=== PATIENT | female | born 1935 | race Caucasian/White ===

== ENCOUNTER 2020-11-27 06:57 | Inpatient (IN) | payer OTHER, MEDICARE ==
[~2020-11-27] VITALS: Ht 167.6 cm; Wt 61.5 kg
[~2020-11-27 06:57] MED LIST: ABAC300; CLINDAMYCIN PO; CLOP75 PO; COUMADIN; DABI150C PO; HYDACE5 PO; OXYB5 PO; PROBIOTICS; SERT100 PO; SERT50; SOTO80; SOTO80 PO; WARF2.5 PO; WARF5; WARF5 PO
[2020-11-27 07:36] LABS: BASOPHILS ABSOLUTE AUTO 0.03 K/mm3 (0.00-0.23); BASOPHILS PERCENT AUTO 0 % (0-2); EOSINOPHILS ABSOLUTE AUTO 0.03 K/mm3 (0.00-0.68); EOSINOPHILS PERCENT AUTO 0 % (0-6); Hematocrit 39.3 % (33.0-51.0); Hemoglobin 11.4 g/dL (11.5-16.0); IMMATURE GRAN ABSOLUTE AUTO 0.16 K/mm3 (0.00-0.10); IMMATURE GRAN PERCENT AUTO 1 % (0-1); LYMPHOCYTES ABSOLUTE AUTO 0.62 K/mm3 (0.84-5.20); LYMPHOCYTES PERCENT AUTO 3 % (21-46); MONOCYTES ABSOLUTE AUTO 0.88 K/mm3 (0.16-1.47); MONOCYTES PERCENT AUTO 5 % (4-13); Mean Corpuscular HGB 24.9 pg (26.0-34.0); Mean Corpuscular Volume 86 fL (80-100); Mean Platelet Volume 11.6 fL (9.1-12.4); NEUTROPHILS ABSOLUTE AUTO 16.63 K/mm3 (1.96-9.15); NEUTROPHILS PERCENT AUTO 91 % (41-73); Platelet Count 573 K/mm3 (150-400); RDW Coefficient Variation 17.1 % (11.7-14.2); RDW Standard Deviation 52.2 fL (35.1-46.3); Red Blood Cell Count 4.58 M/mm3 (3.80-5.20); White Blood Cell Count 18.35 K/mm3 (4.00-11.30)
[2020-11-27 08:04] LABS: Alanine Aminotransfer (ALT/SGP 18 U/L (12-78); Albumin/Globulin Ratio 0.9 (0.8-1.8); Alk Phos 78 U/L (50-136); Anion Gap 5 mmol/L (6-16); Aspartate Aminotrans (AST/SGOT 25 U/L (12-37); Bilirubin, Total 0.5 mg/dL (0.1-1.0); Blood Urea Nitrogen 14 mg/dL (8-24); Bun/Creatinine Ratio 18.6 (12.0-20.0); CO2, Blood 31 mmol/L (21-32); Calcium, Blood 8.9 mg/dL (8.5-10.1); Chloride, Blood 106 mmol/L (98-108); Creatinine, Blood 0.75 mg/dL (0.40-1.00); Globulin, Blood 3.4 g/dL (2.2-4.0); Glomerular Filtration Rate >60 (60-); Glucose, Blood 120 mg/dL (70-99); Potassium, Blood 4.3 mmol/L (3.5-5.5); Sodium, Blood 142 mmol/L (136-145); Total Protein, Blood 6.4 g/dL (6.4-8.2)
[2020-11-27 08:26] LABS: Influenza A, PCR NEGATIVE (NEGATIVE); Influenza B, PCR NEGATIVE (NEGATIVE); Resp Syncytial Virus, PCR NEGATIVE (NEGATIVE); SARS-Cov-2 (COVID-19) PCR, MMC NEGATIVE (NEGATIVE)
[2020-11-27] MEDS ORDERED: METO100ER PO (11:48)
--- NOTE | 2020-11-27 15:53 | NUR ---
ATTEMPTED STRAIGHT CATH FOR URINE SPECIMEN. BLADDER SCAN SHOWED ONLY 55ML IN BLADDER. NO URINE RETURNED, WITH 2 RN ATTEMPT. PROVIDER REJI UPDATED ON CATH ATTEMPTED AND BP'S THAT ARE GOING DOWN AGAIN. ORDERS RECEIVED.
[2020-11-27 17:32] LABS: Hematocrit 34.4 % (33.0-51.0); Hemoglobin 9.7 g/dL (11.5-16.0)
--- NOTE | 2020-11-27 18:55 | NUR ---
SHIFT SUMMARY PT ADMITTED TODAY FROM ER. PT IS ALERT, ORIENTED TO SELF, EXPRESSIVE APHASIA, WHICH FAMILY REPORTS IS BASELINE. PT IS FLACCID ON RIGHT SIDE. BP'S HAVE BEEN INTERMITTANTLY LOW WITH FLUID REPLACED TOTAL 4.5L SINCE COMING TO ER. LEVOPHED JUST INITIATED BP STARTED TO TREND BACK DOWN. PT WAS ON 1L NC OF O2 INTIALLY AND TITRATED UP TO 2L TO MAINTAIN SPO2 >92%. POWERGLIDE WAS PLACED AFTER FAILED PIV ATTEMPTS. PT HASN'T VOIDED SINCE ARRIVAL, ATTEMPTED STRAIGHT CATH FOR SPECIMEN PER ORDERS, BUT PT WAS UNCOOPERATIVE AND UNABLE TO COLLECT SPECIMEN. FAMILY REPORTS THAT PT NORMAL IS ABLE TO STAND AND TRANSFER TO BS. SPEECH THERAPY EVALED PT THIS AFTERNOON AND PLACED PRESCRIBED DIET.
--- NOTE | 2020-11-27 23:38 | NUR ---
ASSUMED CARE AT 1900 PT LAYING IN BED AND SLEEPING. PT HAS HX OF EXPRESSIVE APHASIA AND CVA; PT ANSWERS WITH SIMPLE YES/NO AND SHORT WORD SENTENCES AND CANNOT MAKE HER NEEDS KNOWN; PT OPENS EYES TO SOUND AND TRACKS WITH EYES; NO MOVEMENT TO RUE OR RLE; PT CAN FOLLOW SIMPLE COMMANDS. SPO2 >95% ON 2L NC. AFIBRILE. HR 90-100. SBP 85-110; MAP 65 OR LESS; LEVOPHED INFUSING AT 6MCG/MIN. BLADDER SCAN DONE AND SHOWED 120ML IN BLADDER, WAITING TO COLLECT URINE SAMPLE. NS INFUSING AT 100ML/HR VIA POWER GLIDE TO IRMA. SEE SHIFT ASSESSMENT FOR FULL ASSESSMENT.
[2020-11-28 04:47] LABS: BASOPHILS ABSOLUTE AUTO 0.03 K/mm3 (0.00-0.23); BASOPHILS PERCENT AUTO 0 % (0-2); EOSINOPHILS ABSOLUTE AUTO 0.19 K/mm3 (0.00-0.68); EOSINOPHILS PERCENT AUTO 1 % (0-6); Hematocrit 36.5 % (33.0-51.0); Hemoglobin 10.3 g/dL (11.5-16.0); IMMATURE GRAN ABSOLUTE AUTO 0.11 K/mm3 (0.00-0.10); IMMATURE GRAN PERCENT AUTO 1 % (0-1); LYMPHOCYTES PERCENT AUTO 10 % (21-46); MONOCYTES ABSOLUTE AUTO 1.23 K/mm3 (0.16-1.47); MONOCYTES PERCENT AUTO 8 % (4-13); Mean Corpuscular HGB 24.5 pg (26.0-34.0); Mean Corpuscular HGB Conc 28.2 g/dL (31.5-36.5); Mean Corpuscular Volume 87 fL (80-100); Mean Platelet Volume 11.3 fL (9.1-12.4); NEUTROPHILS ABSOLUTE AUTO 11.72 K/mm3 (1.96-9.15); NEUTROPHILS PERCENT AUTO 80 % (41-73); Platelet Count 723 K/mm3 (150-400); RDW Coefficient Variation 17.2 % (11.7-14.2); RDW Standard Deviation 54.4 fL (35.1-46.3); Red Blood Cell Count 4.21 M/mm3 (3.80-5.20); White Blood Cell Count 14.68 K/mm3 (4.00-11.30)
[2020-11-28 05:13] LABS: Alanine Aminotransfer (ALT/SGP 47 U/L (12-78); Albumin, Blood 2.5 g/dL (3.4-5.0); Albumin/Globulin Ratio 0.8 (0.8-1.8); Alk Phos 72 U/L (50-136); Anion Gap 4 mmol/L (6-16); Aspartate Aminotrans (AST/SGOT 60 U/L (12-37); Bilirubin, Total 0.5 mg/dL (0.1-1.0); Blood Urea Nitrogen 11 mg/dL (8-24); Bun/Creatinine Ratio 15.9 (12.0-20.0); CO2, Blood 26 mmol/L (21-32); Calcium, Blood 7.6 mg/dL (8.5-10.1); Chloride, Blood 116 mmol/L (98-108); Creatinine, Blood 0.69 mg/dL (0.40-1.00); Glomerular Filtration Rate >60 (60-); Glucose, Blood 116 mg/dL (70-99); Magnesium, Blood 1.9 mg/dL (1.6-2.4); Potassium, Blood 4.1 mmol/L (3.5-5.5); Sodium, Blood 146 mmol/L (136-145); Total Protein, Blood 5.5 g/dL (6.4-8.2)
--- NOTE | 2020-11-28 06:26 | NUR ---
END OF SHIFT SUMMARY PT SLEPT FOR MOST OF THE SHIFT. PT HX OF EXPRESSIVE APHASIA AND ANSWERS QUESTIONS WITH YES/NO AND SHORT SENTENCES. AFIBRILE. SPO2 >90% ON 3L NC. HR 90-100; AFIB NOTED. SBP 90-110; MAP 60-80; LEVOPHED INFUSING AT 10MCG/MIN. BLADDER SCAN DONE AT 0000 SHOWING 120ML, RN ASKED PT SEVERAL TIMES IF SHE NEEDED TO USE THE BATHROOM AND PT SAID NO UNTIL 0500 WHEN PT SAID YES AND WHEN CHECKED, PT HAD ALREADY URINATED IN BRIEF WHERE BRIEF WAS SOAKED AND A SMALL SMEAR OF A BM THAT WAS SOAKED INTO BRIEF. PG TO REFUGIO PATENT. WILL REPORT TO AM RN WHEN AVAILABLE.
--- NOTE | 2020-11-28 07:19 | NUR ---
ASSUMED CARE: PT RESTING IN BED WITH 3L NC IN PLACE. AFIB ON TELE AT 101 AT THIS TIME. LEVOPHED AT 10MCG/MIN THROUGH AC PERIPHERAL SITE AT THIS TIME. NO ACUTE NEEDS OR CONCERNS
--- NOTE | 2020-11-28 10:40 | NUR ---
CALL TO DR WILLOUGHBY TO ASK FOR MIDODRINE ORDERS TO ASSIST WITH BP. SEE NEW ORDERS
--- NOTE | 2020-11-28 13:10 | NUR ---
EDEMA NOTED NEAR LEFT AC IV SITE. LYRIC BACK WITH NOTICEABLE BLOOD RETURN. DISCUSSED WITH NEUROPATHOLOGIST WHO ADVISED TO MONITOR SITE AND SWITCH IV LEVOPHED TO POWERGLIDE AT THIS TIME. MOVED BLOOD PRESSURE CUFF TO GIVE LEFT ARM BREAK AND NOTED EDEMA TO NEW SITE FOR BP WELL. WILL CONTINUE TO MONITOR BUT APPEARS THAT EDEMA IS DUE TO BP CUFF RATHER THAN INFILTRATION AT THIS TIME.
--- NOTE | 2020-11-28 14:20 | NUR ---
DISCUSSED WITH DR WILLOUGHBY PT'S INCONTINENT STATUS. INSTRUCTS TO KEEP UA ORDER IN PLACE BUT TO NOT BE AGRESSIVE IN GETTING SAMPLE, MEANING NO STRAIGHT CATH OR YANG NEEDED, ONLY GET SAMPLE IF PT IS ABLE TO VOID IN A CONTINENT MANNER
--- NOTE | 2020-11-28 17:54 | NUR ---
SHIFT SUMMARY: CALL TO DR WILLOUGHBY DUE TO PT'S HR ELEVATING INTO 130S-140S. PT C/O FEELING SOB. SUCTIONED PT WHICH DID NOT REALLY RELIEVE SYMPTOMS. CALL TO DR WILLOUGHBY AND DUE TO PT BEING ON LEVOPHED, WAS UNABLE TO RESTART HOME BETA BLOCKERS. DIGOXIN STARTED. LEVOPHED DOWN TO 3MCG/MIN AT THIS TIME. REMAINS IN AFIB. DAUGHTER AT BEDSIDE. 95% ON 4L O2 AT THIS TIME. LUNG SOUNDS UNCHANGED SINCE THIS AM. INCONTINENT OF URINE, DR MONROY. NO FURTHER NEEDS AT THIS TIME.
--- NOTE | 2020-11-28 19:00 | NUR ---
ASSUMED CARE ASSUMED CARE OF PATIENT. RESTING QUIETLY WHEN UNDISTURBED. ROUSES TO STIMULI. MINIMAL VERBAL RESPONSE OTHER THAN YES/NO RESPONSES. SPEECH IS GARBLED. FOLLOWS SOME SIMPLE COMMANDS. MOVES LEFT EXTREMITIES TO COMMAND. MINIMAL GROSS MOTOR MOVEMENT NOTED IN RIGHT EXTREMITITES. MONITOR SHOWS AFIB WITH RVR, RATE 120s. BP STABLE WITH LEVOPHED AT 3MCG/MIN- DECREASED TO 2MCG/MIN AT THIS TIME. 02 4L NC. NS INFUSING AT 100CC/HR. INCONTINENT OF URINE- ATTENDS IN PLACE. SCDs TO BLE. SEE SHIFT ASSESSMENT FOR FULL ASSESSMENT.
--- NOTE | 2020-11-29 00:25 | NUR ---
RHYTHM CHANGE AT 2214, PT HAD EPISODE OF EMESIS. MEDICATED WITH ZOFRAN 4MG IV AT THAT TIME. PT BECAME MORE TACHYPNEIC AND O2 SATURATIONS DROPPED TO MID- 80s AFTER THE EPISODE. O2 CHANGED TO OXYMIZER, 15L. AT 2225, MONITOR SHOWS VTACH, RATE 170s-200s. CHANGED TO WHAT APPEARED TO BE TORSADES- 2GMS IV MAGNESIUM GIVEN AT 2240. SATS CONTINUED IN LOW TO MID 80s- CHANGED TO NRB 15L AT THAT TIME. DR. ZULETA IN TO SEE PT- NEW ORDER FOR DILTIAZEM 10MG IV BOLUS. DILTIAZEM GIVEN AT 2254 AND SECOND DOSE GIVEN AT 2323. DILTIAZEM GTT 5MG/HR STARTED AT 2337. DAUGHTER, JUAN DANIEL, CALLED AND INFORMED OF CHANGE IN CONDITION- SHE IS NOW AT PT'S BEDSIDE. DILTIAZEM GTT INCREASED TO 10MG/HR AT THIS TIME.
--- NOTE | 2020-11-29 01:50 | NUR ---
COMFORT CARE DR. GARCIA NOTIFIED OF PT'S DAUGHTER'S WISH TO CHANGE TO COMFORT CARE. AFTER DISCUSSION BETWEEN DAUGHTER AND MD AT 0115, PT IS CHANGED TO COMFORT CARE. DILTIAZEM GTT STOPPED AT 0150. DAUGHTER REQUESTS TO LEAVE OXYGEN ON AT THIS TIME. PT MEDICATED WITH PHENERGAN 12.5MG AND ROXANOL 10MG AT 0139.
--- NOTE | 2020-11-29 06:44 | NUR ---
SHIFT SUMMARY MEDICATED WITH ATIVAN X 1, PHENERGAN X 2, ZOFRAN X 1, AND ROXANOL SL X 2 DOSES FOR COMFORT. DAUGHTERS AT BEDSIDE. REMAINS ON O2 AT FAMILY'S REQUEST. INCONTINENT OF URINE- ATTENDS IN PLACE. PT ROUSES ONLY SLIGHTLY TO STIMULI AT THIS TIME. WILL REPORT TO ONCOMING SHIFT WHEN AVAILABLE.
--- NOTE | 2020-11-29 07:16 | NUR ---
ASSUMED CARE: PT NOW COMFORT CARE. RESTING QUIETLY WITH OXYMIZER IN PLACE FOR COMFORT. FAMILY AT BEDSIDE. NO ACUTE NEEDS AT THIS TIME.
--- NOTE | 2020-11-29 10:00 | NUR ---
REPORT CALLED TO RIO WARNER. PT TRANSFERRED VIA BED BY DIETITIAN THERAPEUTIC.
--- NOTE | 2020-11-29 19:37 | NUR ---
SHIFT SUMMARY 1015 PT TX TO RM 336 FROM ICU 9. SLIDE TX TO BED. PT NONRESPONSIVE AND LETHARGIC, BUT MOANING. PT MEDICATED WITH ROXANOL AFTER TX COMPLETE. PT CALMED AND RESTED QUIETLY FOR A WHILE. FAMILY TO WITH PT AND MORE FOLLOWED SOON AFTER TX. FAMILY DECLINED TO HAVE PT REPOSITIONED. FAMILY TO LET US KNOW. PT MEDICATED AGAIN WITH ROXANOL WHEN BECOMING RESTLESS WITH MOANING. PT LATER MEDICATED WITH ATIVAN D/T RESTLESSNESS. PT HAS REMAINED CALM TO PRESENT, BUT STARTING TO TENSE UP DURING SHIFT REPORT. ONCOMING RN TO MEDICATE PT WITH ROXANOL. FAMILY REQUESTING REG MENDEZ OF THE [facility] WHEN PT PASSES.
--- NOTE | 2020-11-29 19:47 | NUR ---
COMFORT: PATIENT IS GRIMACING, FAMILY REQUEST ROXANOL FOR COMFORT. PERSONAL CARE ALSO GIVEN.
--- NOTE | 2020-11-29 22:57 | NUR ---
DISCHARGE: LATE ENTRY FOR 2114 @2104 PATIENT IS FOUND WITH NO RESPIRATIONS AND NO PULSE. CHARGE NURSE AND FAMILY ARE NOTIFIED. FAMILY DECLINNED TO COME BACK, "WE HAVE SAID OUR GOOD BYE'S". NPO SPIRITUAL CARE REQUESTED. KIEL CHAPEL OF THE [facility] WAS CALLED REQUESTED BY FAMILY.
--- NOTE | 2020-11-29 23:04 | NUR ---
DISCHARGE: @ 2209 [employer] PROFESSION[employer] JANE TORRES COMES TO TRANSPORT BODY. [employer] WAS NOTIFIED OF PASSING.
== END 2020-11-29 21:05 | DRG 871 ==
LOC: ER 06:57 → ICUW 10:27 → MEDS 11-29 10:06
PROVIDERS: Emergency Medicine; Nurse Practitioner Acute Care; ADMIT Internal Medicine
PROC: 3E033XZ Introduction of Vasopressor into Peripheral Vein, Percutaneous Approach (ICD-10-PCS; principal; 2020-11-27)
DX: A41.9 Sepsis, unspecified organism (principal); J69.0 Pneumonitis due to inhalation of food and vomit; J18.9 Pneumonia, unspecified organism; R65.21 Severe sepsis with septic shock; I69.351 Hemiplegia and hemiparesis following cerebral infarction affecting right dominant side; Z66 Do not resuscitate; Z51.5 Encounter for palliative care; Z20.822 Contact with and (suspected) exposure to COVID-19; I69.391 Dysphagia following cerebral infarction; R13.10 Dysphagia, unspecified; K52.9 Noninfective gastroenteritis and colitis, unspecified; E86.0 Dehydration; I69.320 Aphasia following cerebral infarction; I48.0 Paroxysmal atrial fibrillation; F32.9 Major depressive disorder, single episode, unspecified; Z88.0 Allergy status to penicillin; Z88.8 Allergy status to other drugs, medicaments and biological substances; Z79.899 Other long term (current) drug therapy; Z90.710 Acquired absence of both cervix and uterus; Z85.42 Personal history of malignant neoplasm of other parts of uterus
CPT/HCPCS: 0241U; 36415; 51701; 71045; 74018; 80053; 83605; 83735; 83880; 84145; 85014; 85018; 85025; 87040; 92526; 92610; 93306; 96361; 96365; 96366; 96367; 96375; 99285-25; A9270; C1751; J0456; J0696; J1160; J2060; J2405; J2550; J3475; J7030; J7040; J7050; J7060